=== PATIENT | male | born 1945 | race Caucasian/White ===

== ENCOUNTER 2022-05-14 08:07 | Day surgery (SDC) | payer MEDICARE, BC ==
[~2022-05-14] VITALS: Ht 190.5 cm; Wt 122.9 kg
[2022-05-14] VITALS (11 sets, daily range): BP systolic 133–166; BP diastolic 78–113
[2022-05-14] MEDS ORDERED: diphenhydrAMINE 25mg capsule PO PRN (08:40)
[2022-05-14] MEDS ORDERED: normal saline 1,000 ML IV SCH (08:40)
[2022-05-14] MEDS ORDERED: HYDR-3972 PO (08:54)
[2022-05-14] MEDS ORDERED: LOSA50TA64 PO (08:54)
[2022-05-14] MEDS ORDERED: ATOR20TA66 PO (08:54)
[2022-05-14] MEDS ORDERED: lutein PO (08:54)
[2022-05-14] MEDS ORDERED: OMEG-5 PO (08:54)
[2022-05-14] MEDS ORDERED: UBID100C16 PO (08:54)
[2022-05-14] MEDS ORDERED: FLO0.4C PO (08:54)
[2022-05-14] MEDS ORDERED: APIX5TAB3 PO (08:54)
[2022-05-14] MEDS ORDERED: vitamin d3 PO (08:54)
[2022-05-14] MEDS ORDERED: AMLO5TAB16 PO (08:54)
[2022-05-14 09:31] LABS: BASOPHILS % (AUTO) 0.5 % (0-1); EOSINOPHILS # (AUTO) 0.1 X10'3 (0-0.9); EOSINOPHILS % (AUTO) 1.6 % (0-6); HEMATOCRIT 44.7 % (42.0-52.0); LYMPHOCYTES # (AUTO) 1.1 X10'3 (1.1-4.8); LYMPHOCYTES % (AUTO) 19.4 % (21-51); MEAN CORPUSCULAR HEMOGLOBIN 31.6 PG (27.0-31.0); MEAN CORPUSCULAR HGB CONC 33.6 g/dL (33.0-36.5); MEAN PLATELET VOLUME 7.9 FL (7.4-10.4); MONOCYTES # (AUTO) 0.5 X10'3 (0-0.9); MONOCYTES % (AUTO) 8.7 % (2-12); NEUTROPHILS # (AUTO) 3.8 X10'3 (1.8-7.7); NEUTROPHILS % (AUTO) 69.8 % (42-75); PLATELET COUNT 129 X10'3 (140-440); RED BLOOD COUNT 4.75 X10'6 (4.70-6.10); RED CELL DISTRIBUTION WIDTH 14.2 % (11.5-14.5); WHITE BLOOD COUNT 5.4 X10'3 (4.5-11.0)
[2022-05-14 09:34] LABS: ANION GAP 9 (8-16); BLOOD UREA NITROGEN 17 MG/DL (7-18); BUN/CREATININE RATIO 13.2 (10.0-20.0); CHLORIDE 105 MMOL/L (99-107); CREATININE 1.29 MG/DL (0.60-1.10); GLUCOSE 124 MG/DL (70-104); SODIUM 140 MMOL/L (135-145); TOTAL CARBON DIOXIDE 25.9 MMOL/L (24-32)
[2022-05-14 09:35] LABS: MAGNESIUM 2.2 MG/DL (1.5-2.4); eGFR 54 ML/MIN
[2022-05-14] MEDS ORDERED: midazolam 1 mg/ML 2ml injection ONE ×2 (10:00→10:25)
[2022-05-14] MEDS ORDERED: heparin 1,000unit/ml 10ml vial 10 ML ONE ×2 (10:00→11:14)
[2022-05-14] MEDS ORDERED: LIDOcaine 1% (10mg/ml) 2ml vial ONE (10:00)
[2022-05-14] MEDS ORDERED: fentaNYL/PF 50MCG/1 ML 2ML syringe ONE (10:00)
[2022-05-14] MEDS ORDERED: nitroGLYCERIN-Tridil 50MG/D5W 0 ML IV ONE (10:00)
[2022-05-14] MEDS ORDERED: heparin 1,000 UNITS/NS 500ml 500 ML ONE (10:01)
[2022-05-14] MEDS ORDERED: iohexol 350 MG/ML 50ML vial IV ONE ×2 (10:05→11:49)
[2022-05-14] MEDS ORDERED: verapamil 2.5 mg/ml inj IV ONE (10:05)
[2022-05-14] MEDS ORDERED: iohexol 350MG/ML 100ml bottle IV ONE ×2 (10:20→10:49)
[2022-05-14] MEDS ORDERED: metoprolol tartrate 1mg/ml inj IV ONE ×2 (10:35→10:45)
[2022-05-14] MEDS ORDERED: LIDOcaine 1% 30ml preserv. free vial ONE (11:16)
[2022-05-14] MEDS ORDERED: ticagrelor 90mg tablet ONE (11:55)
[2022-05-14] MEDS ORDERED: ondansetron/PF 4mg/2ml inj IV PRN (12:30)
[2022-05-14] MEDS ORDERED: proCHLORperazine 10 MG/2 ml inj IV PRN (12:30)
[2022-05-14] MEDS ORDERED: HYDROcodone/acetaminophen 10/325mg tab PO PRN (12:30)
[2022-05-14] MEDS ORDERED: HYDROcodone/acetaminophen 5mg/325mg tablet PO PRN (12:30)
[2022-05-14] MEDS ORDERED: normal saline 1000ml 1,000 ML IV SCH (12:30)
== END 2022-05-14 16:45 | disposition home or self-care (01) ==
LOC: SSTAY O 08:07
PROVIDERS: ATTEND Internal Medicine Cardiovascular Disease
DX: R94.30 Abnormal result of cardiovascular function study, unspecified (principal); I25.10 Atherosclerotic heart disease of native coronary artery without angina pectoris; I48.20 Chronic atrial fibrillation, unspecified; I10 Essential (primary) hypertension; E78.5 Hyperlipidemia, unspecified; G47.30 Sleep apnea, unspecified; Z79.899 Other long term (current) drug therapy; Z98.890 Other specified postprocedural states
CPT/HCPCS: 36415; 80048; 83735; 85025; 85610; 93005; 93458; 99152; 99153; A6258; C1725; C1751; C1760; C1769; C1874; C1892; C1894; C9600; J1644; J2250; J3010; J3490; J7030; Q0163; Q9967; A6402; A6449; C9607

== ENCOUNTER 2022-05-25 08:07 | Day surgery (SDC) | payer MEDICARE, BC ==
[~2022-05-25] VITALS: Ht 190.5 cm; Wt 122.7 kg
[2022-05-25] VITALS (11 sets, daily range): BP systolic 143–162; BP diastolic 80–96
[~2022-05-25 08:07] MED LIST: AMLO5TAB16 PO; APIX5TAB3 PO; ATOR20TA66 PO; FLO0.4C PO; HYDR-3972 PO; LOSA50TA64 PO; OMEG-5 PO; UBID100C16 PO; lutein PO; vitamin d3 PO
[2022-05-25] MEDS ORDERED: diphenhydrAMINE 25mg capsule PO PRN (09:00)
[2022-05-25] MEDS ORDERED: SODIUM BICARB 150mEq/D5W 1L 999 ML IV SCH ×2 (09:00)
[2022-05-25] MEDS ORDERED: normal saline 1,000 ML IV SCH (09:00)
[2022-05-25 09:03] LABS: BASOPHILS % (AUTO) 0.6 % (0-1); EOSINOPHILS # (AUTO) 0.1 X10'3 (0-0.9); EOSINOPHILS % (AUTO) 2.3 % (0-6); HEMATOCRIT 44.1 % (42.0-52.0); HEMOGLOBIN 14.9 g/dl (14.0-17.9); LYMPHOCYTES # (AUTO) 0.8 X10'3 (1.1-4.8); MEAN CORPUSCULAR HGB CONC 33.7 g/dL (33.0-36.5); MEAN PLATELET VOLUME 7.8 FL (7.4-10.4); MONOCYTES # (AUTO) 0.5 X10'3 (0-0.9); MONOCYTES % (AUTO) 8.9 % (2-12); NEUTROPHILS # (AUTO) 4.2 X10'3 (1.8-7.7); NEUTROPHILS % (AUTO) 74.2 % (42-75); PLATELET COUNT 142 X10'3 (140-440); RED BLOOD COUNT 4.64 X10'6 (4.70-6.10); RED CELL DISTRIBUTION WIDTH 14.4 % (11.5-14.5); WHITE BLOOD COUNT 5.7 X10'3 (4.5-11.0)
[2022-05-25 09:12] LABS: ALBUMIN 3.8 G/DL (3.4-5.0); ANION GAP 10 (8-16); BLOOD UREA NITROGEN 19 MG/DL (7-18); BUN/CREATININE RATIO 14.4 (10.0-20.0); CALCIUM 8.5 MG/DL (8.5-10.1); CHLORIDE 106 MMOL/L (99-107); CREATININE 1.32 MG/DL (0.60-1.10); GLUCOSE 118 MG/DL (70-104); MAGNESIUM 2.2 MG/DL (1.5-2.4); SODIUM 140 MMOL/L (135-145); TOTAL CARBON DIOXIDE 23.8 MMOL/L (24-32); eGFR 53 ML/MIN
[2022-05-25] MEDS ORDERED: METO25TA6 PO (09:28)
[2022-05-25] MEDS ORDERED: TICA90TA PO (09:28)
[2022-05-25] MEDS ORDERED: verapamil 2.5 mg/ml inj IV ONE (10:15)
[2022-05-25] MEDS ORDERED: fentaNYL/PF 50MCG/1 ML 2ML syringe ONE ×2 (10:15→14:15)
[2022-05-25] MEDS ORDERED: LIDOcaine 1% (10mg/ml) 2ml vial ONE (10:15)
[2022-05-25] MEDS ORDERED: nitroGLYCERIN-Tridil 50MG/D5W 250 ML IV ONE (10:16)
[2022-05-25] MEDS ORDERED: midazolam 1 mg/ML 2ml injection ONE ×3 (10:16→14:15)
[2022-05-25] MEDS ORDERED: iohexol 350 MG/ML 50ML vial IV ONE (10:16)
[2022-05-25] MEDS ORDERED: iohexol 350MG/ML 100ml bottle IV ONE ×2 (10:16→14:09)
[2022-05-25] MEDS ORDERED: heparin 1,000unit/ml 10ml vial 10 ML ONE (10:16)
[2022-05-25] MEDS ORDERED: LIDOcaine 1% 30ml preserv. free vial ONE (13:29)
[2022-05-25] MEDS ORDERED: heparin 1,000 UNITS/NS 500ml 500 ML ONE (14:11)
[2022-05-25] MEDS ORDERED: protamine sulfate 10mg/ml inj. ONE (15:17)
[2022-05-25] MEDS ORDERED: HYDROcodone/acetaminophen 10/325mg tab PO PRN (15:55)
[2022-05-25] MEDS ORDERED: normal saline 1000ml 1,000 ML IV SCH (15:55)
[2022-05-25] MEDS ORDERED: proCHLORperazine 10 MG/2 ml inj IV PRN (15:55)
[2022-05-25] MEDS ORDERED: ondansetron/PF 4mg/2ml inj IV PRN (15:55)
[2022-05-25] MEDS ORDERED: HYDROcodone/acetaminophen 5mg/325mg tablet PO PRN (15:55)
[2022-05-25] MEDS ORDERED: ketorolac tromethamine 15mg/ml inj. IV ONE (16:00)
[2022-05-25] MEDS ORDERED: ticagrelor 90mg tablet PO ONE (18:05)
--- NOTE | 2022-05-25 18:21 | NUR ---
Patient s/p angiogram with PCI. Notified Dr. Barcenas that patient's last dose of 90 mg Brillinta was 05/24/22 @ 1999. New order for 180 mg Brillinta once prior to discharge.
== END 2022-05-25 18:55 | disposition home or self-care (01) ==
LOC: SSTAY O 08:07
PROVIDERS: ATTEND Internal Medicine Cardiovascular Disease
DX: R94.30 Abnormal result of cardiovascular function study, unspecified (principal); I25.119 Atherosclerotic heart disease of native coronary artery with unspecified angina pectoris; I48.20 Chronic atrial fibrillation, unspecified; I10 Essential (primary) hypertension; E78.5 Hyperlipidemia, unspecified; G47.30 Sleep apnea, unspecified; E66.9 Obesity, unspecified; Z68.33 Body mass index [BMI] 33.0-33.9, adult; Z88.2 Allergy status to sulfonamides; Z88.1 Allergy status to other antibiotic agents; Z79.899 Other long term (current) drug therapy; Z79.01 Long term (current) use of anticoagulants
CPT/HCPCS: 36415; 80048; 83735; 85025; 85610; 93005; 99152; 99153; C1725; C1751; C1760; C1769; C1874; C1894; C9600; J1644; J1885; J2250; J2720; J3010; J3490; J7030; Q0163; Q9967; A6258; C1761